=== PATIENT | female | born 1990 | race Asian ===

== ENCOUNTER 2018-04-27 12:44 | Emergency (ER) | payer OTHER | END 2018-04-27 15:26 | disposition home or self-care (01) | LOC: M ED 12:44 | DX: L03.012 Cellulitis of left finger (principal); Z79.2 Long term (current) use of antibiotics | CPT/HCPCS: 73140 ==

== ENCOUNTER → 2019-07-20 | Outpatient (REF) | payer OTHER ==
[~2019-07-20] MED LIST: BACT800T5 PO; DIPR0.052 TOP
== END ==
LOC: M SFHCLERA 13:26
PROVIDERS: ATTEND Physician Assistant
DX: J02.9 Acute pharyngitis, unspecified (principal)